=== PATIENT | male | born 1985 | race Caucasian/White ===

== ENCOUNTER 2017-01-12 20:40 | Inpatient (IN) | payer SELFPAY ==
[~2017-01-12] VITALS: Ht 182.9 cm; Wt 102.5 kg
[2017-01-12] MEDS ORDERED: QUET25TA PO (20:58)
[2017-01-12 21:09] LABS: BASOPHILS % (AUTO) 0.9 % (0.0-2.0); EOSINOPHILS % (AUTO) 0.5 % (1.0-6.0); HEMATOCRIT 42.9 % (41-53); LYMPHOCYTES % (AUTO) 32.1 % (22.0-44.0); MEAN CORPUSCULAR HEMOGLOBIN 29.4 pg (26.0-34.0); MEAN CORPUSCULAR HGB CONC 32.7 G/dL (31.0-37.0); MEAN CORPUSCULAR VOLUME 90 fL (80-100); MONOCYTES # (AUTO) 0.8 K/uL (0.1-1.0); MONOCYTES % (AUTO) 8.9 % (2.0-9.0); NEUTROPHILS # (AUTO) 5.4 K/uL (1.8-7.7); NEUTROPHILS % (AUTO) 57.6 % (40.0-70.0); RED BLOOD CELL COUNT(AUTO) 4.78 MIL/uL (4.50-5.90); RED CELL DISTRIBUTION WIDTH 12.9 % (11.5-14.5)
[2017-01-12] MEDS ORDERED: LORazepam 2 MG/ML VIAL IM ONE (21:15)
[2017-01-12] MEDS ORDERED: HALOPERIDOL LACTATE 5 MG/ML VIAL IM ONE (21:15)
[2017-01-12] MEDS ORDERED: DiphenhydrAMINE HCL 50 MG/ML VIAL IM ONE (21:15)
[2017-01-12 21:17] LABS: WHITE BLOOD COUNT (AUTO) 10.2 K/uL (4.5-11.0)
[2017-01-12 21:33] LABS: ALANINE AMINOTRANSFERASE 32 U/L (12-78); ALBUMIN 4.2 g/dL (3.4-5.0); ANION GAP 11 mmol/L (8-16); ASPARTATE AMINOTRANSFERASE 40 U/L (15-37); BILIRUBIN,TOTAL 0.8 mg/dL (0.1-1.0); CALCIUM, TOTAL 10.3 mg/dL (8.8-10.5); CARBON DIOXIDE 27 mmol/L (22-29); CHLORIDE 103 mmol/L (98-107); CREATININE 1.05 mg/dL (0.60-1.30); GLOMERULAR FILTR. RATE CALC > 60 mL/min (>60); SODIUM SERUM 141 mmol/L (136-145); TOTAL PROTEIN, SERUM 8.3 g/dL (6.4-8.2); UREA NITROGEN, BLOOD 19 mg/dL (7-18)
[2017-01-12 21:38] LABS: PLATELET COUNT (AUTO) 282 K/uL (150-450); RBC MORPHOLOGY COMMENT NORMAL RBC MORPH
[2017-01-12 21:46] LABS: POTASSIUM 4.6 mmol/L (3.5-5.1)
[2017-01-12] MEDS ORDERED: HALOPERIDOL 5 MG TABLET PO PRN (22:30)
[2017-01-12] MEDS ORDERED: ZOLPIDEM TARTRATE 10 MG TABLET PO PRN (22:30)
[2017-01-13 16:02] VITALS: BP 138/80
[2017-01-13] MEDS: LORazepam 2 MG TABLET PO PRN (20:11)
[2017-01-14 03:49] VITALS: BP 135/86
[2017-01-14 08:06] VITALS: BP 126/75
[2017-01-14] MEDS: LORazepam 2 MG TABLET PO PRN ×2 (08:38→20:08)
[2017-01-14 16:00] VITALS: BP 135/69
[2017-01-14] MEDS: QUEtiapine FUMARATE 100 MG TABLET PO SCH (20:08)
[2017-01-15 03:08] VITALS: BP 132/74
[2017-01-15 08:06] VITALS: BP 140/80
[2017-01-15] MEDS: LORazepam 2 MG TABLET PO PRN ×2 (12:48→18:13)
[2017-01-15 16:00] VITALS: BP 135/79
[2017-01-15] MEDS: QUEtiapine FUMARATE 100 MG TABLET PO SCH (20:31)
[2017-01-16 05:23] VITALS: BP 135/74
[2017-01-16 08:29] VITALS: BP 130/88
[2017-01-16] MEDS ORDERED: QUET100T PO (12:16)
== END 2017-01-16 13:30 | disposition home or self-care (01) | DRG 885 ==
LOC: EMS 20:42 → B3A 01-13 10:46
PROVIDERS: ADMIT Psychiatry & Neurology Child & Adolescent Psychiatry; ATTEND Psychiatry & Neurology Child & Adolescent Psychiatry
DX: F25.0 Schizoaffective disorder, bipolar type (principal); F17.210 Nicotine dependence, cigarettes, uncomplicated; Z91.19 Patient's noncompliance with other medical treatment and regimen; Z79.899 Other long term (current) drug therapy
CPT/HCPCS: 96372; 99285; G0480; J1200; J1630; J2060

== ENCOUNTER 2018-04-13 12:51 | Inpatient (IN) | payer MEDICAID, OTHER ==
[~2018-04-13] VITALS: Ht 182.9 cm; Wt 111.0 kg
[~2018-04-13 12:51] MED LIST: DIVA-78 PO; RISP3 PO
[2018-04-13 13:23] LABS: BASOPHILS % (AUTO) 0.7 % (0.0-2.0); EOSINOPHILS % (AUTO) 0.4 % (1.0-6.0); HEMATOCRIT 41.3 % (41-53); HEMOGLOBIN 14.5 g/dL (13.5-17.5); LYMPHOCYTES # (AUTO) 2.5 K/uL (1.0-4.8); LYMPHOCYTES % (AUTO) 26.2 % (22.0-44.0); MEAN CORPUSCULAR HEMOGLOBIN 30.6 pg (26.0-34.0); MEAN CORPUSCULAR HGB CONC 35.1 G/dL (31.0-37.0); MEAN CORPUSCULAR VOLUME 87 fL (80-100); MONOCYTES # (AUTO) 0.9 K/uL (0.1-1.0); MONOCYTES % (AUTO) 9.9 % (2.0-9.0); NEUTROPHILS % (AUTO) 62.8 % (40.0-70.0); PLATELET COUNT (AUTO) 327 K/uL (150-450); RED BLOOD CELL COUNT(AUTO) 4.73 MIL/uL (4.50-5.90); RED CELL DISTRIBUTION WIDTH 13.3 % (11.5-14.5)
[2018-04-13 13:32] LABS: ANION GAP 14 mmol/L (8-16); CALCIUM, TOTAL 9.8 mg/dL (8.8-10.5); CARBON DIOXIDE 25 mmol/L (22-29); CHLORIDE 102 mmol/L (98-107); CREATININE 1.25 mg/dL (0.60-1.30); GLOMERULAR FILTR. RATE CALC > 60 mL/min (>60); GLUCOSE,RANDOM 100 mg/dL (70-110); POTASSIUM 3.9 mmol/L (3.5-5.1); SODIUM SERUM 141 mmol/L (136-145); UREA NITROGEN, BLOOD 18 mg/dL (7-18)
[2018-04-13 13:38] LABS: ALANINE AMINOTRANSFERASE 28 U/L (12-78); ALBUMIN 4.6 g/dL (3.4-5.0); ALKALINE PHOSPHATASE 76 U/L (46-116); ASPARTATE AMINOTRANSFERASE 21 U/L (15-37); BILIRUBIN,TOTAL 1.1 mg/dL (0.1-1.0); TOTAL PROTEIN, SERUM 8.7 g/dL (6.4-8.2)
[2018-04-13] MEDS ORDERED: HALOPERIDOL LACTATE 5 MG/ML VIAL IM ONE (14:15)
[2018-04-13] MEDS ORDERED: LORazepam 2 MG/ML VIAL IM ONE (14:15)
[2018-04-13] MEDS ORDERED: DiphenhydrAMINE HCL 50 MG/ML VIAL IM ONE (14:15)
[2018-04-13] MEDS ORDERED: HALOPERIDOL 5 MG TABLET PO PRN (14:45)
[2018-04-13] MEDS ORDERED: LORazepam 2 MG TABLET PO PRN (14:45)
[2018-04-13] MEDS ORDERED: ZOLPIDEM TARTRATE 10 MG TABLET PO PRN (14:45)
[2018-04-13] MEDS ORDERED: PETROLATUM,WHITE 71 GM JELLY TP PRN ×2 (19:45→21:00)
[2018-04-13] MEDS ORDERED: MAGNESIUM HYDROXIDE SUSPENSION 30 ML UDCUP PO PRN (19:45)
[2018-04-13] MEDS ORDERED: ALBUTEROL SULFATE HFA 90 MCG/PUFF 8 GM INHALER IH PRN (19:45)
[2018-04-13] MEDS ORDERED: LOPERAMIDE HCL 2 MG CAPSULE PO PRN (19:45)
[2018-04-13] MEDS ORDERED: IBUPROFEN 400 MG TABLET PO PRN (19:45)
[2018-04-13] MEDS ORDERED: MAG HYDROX/AL HYDROX/SIMETH ES 30 ML SUSPENSION UDCUP PO PRN (19:45)
[2018-04-13] MEDS ORDERED: CloNIDine HCL 0.1 MG TABLET PO PRN (19:45)
[2018-04-13] MEDS ORDERED: ACETAMINOPHEN 325 MG TABLET PO PRN (19:45)
[2018-04-13] MEDS ORDERED: DOCUSATE SODIUM 100 MG CAPSULE PO PRN (19:45)
[2018-04-13] MEDS ORDERED: ONDANSETRON HCL 4 MG TABLET PO PRN (19:45)
[2018-04-13] MEDS: DIVALPROEX SODIUM 500 MG DR TABLET PO SCH (19:54)
[2018-04-13] MEDS ORDERED: BENZOCAINE/MENTHOL LOZENGE MM PRN (21:00)
[2018-04-13] MEDS ORDERED: BACITRACIN 28.4 GM OINTMENT TP PRN (21:00)
[2018-04-13] MEDS: RisperiDONE 2 MG TABLET PO SCH (21:11)
[2018-04-14 06:45] LABS: BASOPHILS % (AUTO) 0.8 % (0.0-2.0); EOSINOPHILS % (AUTO) 3.3 % (1.0-6.0); HEMATOCRIT 37.8 % (41-53); HEMOGLOBIN 13.2 g/dL (13.5-17.5); LYMPHOCYTES # (AUTO) 2.8 K/uL (1.0-4.8); LYMPHOCYTES % (AUTO) 47.9 % (22.0-44.0); MEAN CORPUSCULAR HEMOGLOBIN 30.8 pg (26.0-34.0); MEAN CORPUSCULAR HGB CONC 34.9 G/dL (31.0-37.0); MEAN CORPUSCULAR VOLUME 88 fL (80-100); MONOCYTES # (AUTO) 0.7 K/uL (0.1-1.0); MONOCYTES % (AUTO) 12.6 % (2.0-9.0); NEUTROPHILS # (AUTO) 2.1 K/uL (1.8-7.7); NEUTROPHILS % (AUTO) 35.4 % (40.0-70.0); PLATELET COUNT (AUTO) 259 K/uL (150-450); RED BLOOD CELL COUNT(AUTO) 4.28 MIL/uL (4.50-5.90); RED CELL DISTRIBUTION WIDTH 13.2 % (11.5-14.5)
[2018-04-14 07:09] LABS: HEMOGLOBIN A1C 5.1 % (4.5-6.2)
[2018-04-14 07:26] LABS: ALANINE AMINOTRANSFERASE 24 U/L (12-78); ALBUMIN 3.8 g/dL (3.4-5.0); ALKALINE PHOSPHATASE 66 U/L (46-116); ANION GAP 9 mmol/L (8-16); ASPARTATE AMINOTRANSFERASE 17 U/L (15-37); BILIRUBIN,TOTAL 0.8 mg/dL (0.1-1.0); CALCIUM, TOTAL 9.1 mg/dL (8.8-10.5); CARBON DIOXIDE 25 mmol/L (22-29); CHLORIDE 105 mmol/L (98-107); CHOL/HDL RATIO 3.4 (4.2-7.3); CHOLESTEROL 172 mg/dL (131-200); CREATININE 1.03 mg/dL (0.60-1.30); GLOMERULAR FILTR. RATE CALC > 60 mL/min (>60); GLUCOSE,RANDOM 115 mg/dL (70-110); HDL CHOLESTEROL 50 mg/dL (40-60); LDL CHOL (CALC.) 107 mg/dL (0-130); POTASSIUM 3.7 mmol/L (3.5-5.1); SODIUM SERUM 139 mmol/L (136-145); THYROID STIMULATING HORMONE 0.44 uIU/mL (0.36-3.74); TOTAL PROTEIN, SERUM 7.3 g/dL (6.4-8.2); TRIGLYCERIDES 75 mg/dL (15-150); UREA NITROGEN, BLOOD 14 mg/dL (7-18)
[2018-04-14 08:33] VITALS: BP 155/90
[2018-04-14] MEDS: NICOTINE 14 MG/24 HOUR PATCH TD SCH (09:00)
[2018-04-14] MEDS: DIVALPROEX SODIUM 500 MG DR TABLET PO SCH ×2 (09:35→16:39)
[2018-04-14 14:25] VITALS: BP 141/83
[2018-04-14] MEDS: QUEtiapine FUMARATE 100 MG TABLET PO SCH (16:39)
[2018-04-14 16:42] VITALS: BP 136/73
[2018-04-14] MEDS: RisperiDONE 2 MG TABLET PO SCH (20:38)
[2018-04-15 08:44] VITALS: BP 141/87
[2018-04-15] MEDS: NICOTINE 14 MG/24 HOUR PATCH TD SCH (09:00)
[2018-04-15] MEDS: DIVALPROEX SODIUM 500 MG DR TABLET PO SCH ×2 (09:52→16:33)
[2018-04-15] MEDS: QUEtiapine FUMARATE 100 MG TABLET PO SCH ×2 (09:52→16:33)
[2018-04-15 16:00] VITALS: BP 156/89
[2018-04-15] MEDS: RisperiDONE 2 MG TABLET PO SCH (20:16)
[2018-04-16 08:00] VITALS: BP 129/84
[2018-04-16] MEDS: QUEtiapine FUMARATE 100 MG TABLET PO SCH (08:17)
[2018-04-16] MEDS: DIVALPROEX SODIUM 500 MG DR TABLET PO SCH ×2 (08:17→16:35)
[2018-04-16] MEDS: NICOTINE 14 MG/24 HOUR PATCH TD SCH (09:00)
[2018-04-16] MEDS: QUEtiapine FUMARATE 200 MG TABLET PO SCH (16:35)
[2018-04-16 16:57] VITALS: BP 116/73
[2018-04-17 06:53] LABS: BASOPHILS % (AUTO) 0.6 % (0.0-2.0); EOSINOPHILS % (AUTO) 3.4 % (1.0-6.0); HEMATOCRIT 40.6 % (41-53); HEMOGLOBIN 13.9 g/dL (13.5-17.5); LYMPHOCYTES % (AUTO) 48.1 % (22.0-44.0); MEAN CORPUSCULAR HEMOGLOBIN 30.7 pg (26.0-34.0); MEAN CORPUSCULAR HGB CONC 34.4 G/dL (31.0-37.0); MEAN CORPUSCULAR VOLUME 89 fL (80-100); MONOCYTES # (AUTO) 0.6 K/uL (0.1-1.0); MONOCYTES % (AUTO) 8.9 % (2.0-9.0); NEUTROPHILS # (AUTO) 2.4 K/uL (1.8-7.7); PLATELET COUNT (AUTO) 273 K/uL (150-450); RED BLOOD CELL COUNT(AUTO) 4.55 MIL/uL (4.50-5.90); RED CELL DISTRIBUTION WIDTH 12.9 % (11.5-14.5)
[2018-04-17 07:17] LABS: ALANINE AMINOTRANSFERASE 22 U/L (12-78); ALBUMIN 3.8 g/dL (3.4-5.0); ALKALINE PHOSPHATASE 63 U/L (46-116); ANION GAP 6 mmol/L (8-16); ASPARTATE AMINOTRANSFERASE 13 U/L (15-37); BILIRUBIN,TOTAL 0.4 mg/dL (0.1-1.0); CALCIUM, TOTAL 9.1 mg/dL (8.8-10.5); CARBON DIOXIDE 30 mmol/L (22-29); CHLORIDE 100 mmol/L (98-107); CREATININE 0.82 mg/dL (0.60-1.30); GLOMERULAR FILTR. RATE CALC > 60 mL/min (>60); GLUCOSE,RANDOM 90 mg/dL (70-110); POTASSIUM 4.2 mmol/L (3.5-5.1); SODIUM SERUM 136 mmol/L (136-145); TOTAL PROTEIN, SERUM 7.3 g/dL (6.4-8.2); UREA NITROGEN, BLOOD 12 mg/dL (7-18); VALPROIC ACID 23 mcg/mL (50-100)
[2018-04-17] MEDS: QUEtiapine FUMARATE 200 MG TABLET PO SCH ×2 (08:59→16:58)
[2018-04-17] MEDS: DIVALPROEX SODIUM 500 MG DR TABLET PO SCH ×2 (08:59→16:58)
[2018-04-17 09:00] VITALS: BP 131/74
[2018-04-17] MEDS: NICOTINE 14 MG/24 HOUR PATCH TD SCH (09:00)
[2018-04-17 17:04] VITALS: BP 129/79
[2018-04-18] MEDS: NICOTINE 14 MG/24 HOUR PATCH TD SCH (08:53)
[2018-04-18] MEDS: DIVALPROEX SODIUM 500 MG DR TABLET PO SCH (08:54)
[2018-04-18] MEDS: QUEtiapine FUMARATE 200 MG TABLET PO SCH (08:54)
[2018-04-18 09:02] VITALS: BP 126/78
[2018-04-18] MEDS ORDERED: QUET200T PO (11:49)
== END 2018-04-18 14:47 | disposition home or self-care (01) | DRG 750 ==
LOC: EMS 12:52 → 3EC 18:04 → 3EI 04-16 18:00
PROVIDERS: ADMIT Psychiatry & Neurology Psychiatry; ATTEND Psychiatry & Neurology Psychiatry
DX: F25.0 Schizoaffective disorder, bipolar type (principal); Z78.1 Physical restraint status; I10 Essential (primary) hypertension; Z59.0 Homelessness; F41.9 Anxiety disorder, unspecified; G47.00 Insomnia, unspecified; Z91.19 Patient's noncompliance with other medical treatment and regimen; F17.200 Nicotine dependence, unspecified, uncomplicated; R00.0 Tachycardia, unspecified; Z63.9 Problem related to primary support group, unspecified; F19.10 Other psychoactive substance abuse, uncomplicated; Z71.6 Tobacco abuse counseling; Z71.51 Drug abuse counseling and surveillance of drug abuser
CPT/HCPCS: 82306; 83036; 84443; 96372; 99291; G0480; J1200; J1630; J2060

== ENCOUNTER 2018-11-20 14:24 | Inpatient (IN) | payer MEDICAID ==
[~2018-11-20] VITALS: Ht 182.9 cm; Wt 91.7 kg
[~2018-11-20 14:24] MED LIST changes: +QUET200T PO; -RISP3 PO
[2018-11-20] MEDS ORDERED: ZOLPIDEM TARTRATE 10 MG TABLET PO PRN (19:45)
[2018-11-20] MEDS ORDERED: HALOPERIDOL 5 MG TABLET PO PRN (19:45)
[2018-11-20] MEDS ORDERED: LORazepam 2 MG TABLET PO PRN (19:45)
[2018-11-20] MEDS ORDERED: PNEUMOCOCCAL VACCINE POLYVALENT 0.5 ML VIAL [PPSV23] IM ONE (20:00)
[2018-11-20 20:03] VITALS: BP 127/80
[2018-11-20] MEDS ORDERED: DOCUSATE SODIUM 100 MG CAPSULE PO PRN (20:30)
[2018-11-20] MEDS ORDERED: NICOTINE 14 MG/24 HOUR PATCH TD PRN (20:30)
[2018-11-20] MEDS ORDERED: ACETAMINOPHEN 325 MG TABLET PO PRN (20:30)
[2018-11-20] MEDS ORDERED: CloNIDine HCL 0.1 MG TABLET PO PRN (20:30)
[2018-11-20] MEDS ORDERED: GuaiFENesin/D-METHORPHAN [SUGAR-FREE] 200-20MG/10 ML SYRUP UDCUP PO PRN (20:30)
[2018-11-20] MEDS ORDERED: MAG HYDROX/AL HYDROX/SIMETH ES 30 ML SUSPENSION UDCUP PO PRN (20:30)
[2018-11-20] MEDS ORDERED: PETROLATUM,WHITE 71 GM JELLY TP PRN (20:30)
[2018-11-20] MEDS ORDERED: ONDANSETRON HCL 4 MG TABLET PO PRN (20:30)
[2018-11-20] MEDS ORDERED: MAGNESIUM HYDROXIDE SUSPENSION 30 ML UDCUP PO PRN (20:30)
[2018-11-20] MEDS ORDERED: IBUPROFEN 400 MG TABLET PO PRN (20:30)
[2018-11-20] MEDS ORDERED: LOPERAMIDE HCL 2 MG CAPSULE PO PRN (20:30)
[2018-11-20] MEDS ORDERED: ALBUTEROL SULFATE HFA 90 MCG/PUFF 8 GM INHALER IH PRN (20:30)
[2018-11-21 01:06] VITALS: BP 119/73
[2018-11-21 08:12] LABS: BASOPHILS % (AUTO) 0.6 % (0.0-2.0); EOSINOPHILS % (AUTO) 2.2 % (1.0-6.0); HEMOGLOBIN 14.6 g/dL (13.5-17.5); LYMPHOCYTES # (AUTO) 3.5 K/uL (1.0-4.8); LYMPHOCYTES % (AUTO) 46.1 % (22.0-44.0); MEAN CORPUSCULAR HEMOGLOBIN 29.8 pg (26.0-34.0); MEAN CORPUSCULAR HGB CONC 33.9 G/dL (31.0-37.0); MEAN CORPUSCULAR VOLUME 88 fL (80-100); MONOCYTES # (AUTO) 0.9 K/uL (0.1-1.0); NEUTROPHILS % (AUTO) 39.1 % (40.0-70.0); PLATELET COUNT (AUTO) 344 K/uL (150-450); RED CELL DISTRIBUTION WIDTH 14.1 % (11.5-14.5)
[2018-11-21 08:22] VITALS: BP 139/84
[2018-11-21 08:27] LABS: HEMOGLOBIN A1C 5.2 % (4.5-6.2)
[2018-11-21 08:31] LABS: ALANINE AMINOTRANSFERASE 29 U/L (12-78); ALBUMIN 4.5 g/dL (3.4-5.0); ALKALINE PHOSPHATASE 81 U/L (46-116); ANION GAP 12 mmol/L (8-16); ASPARTATE AMINOTRANSFERASE 38 U/L (15-37); BILIRUBIN,TOTAL 0.8 mg/dL (0.1-1.0); CALCIUM, TOTAL 10.3 mg/dL (8.8-10.5); CARBON DIOXIDE 25 mmol/L (22-29); CHLORIDE 100 mmol/L (98-107); CHOL/HDL RATIO 2.2 (4.2-7.3); CHOLESTEROL 148 mg/dL (131-200); CREATININE 1.16 mg/dL (0.60-1.30); FREE T4 (FREE THYROXINE) 1.17 ng/dL (0.76-1.46); GLOMERULAR FILTR. RATE CALC > 60 mL/min (>60); GLUCOSE,RANDOM 96 mg/dL (70-110); HDL CHOLESTEROL 66 mg/dL (40-60); LDL CHOL (CALC.) 67 mg/dL (0-130); POTASSIUM 3.9 mmol/L (3.5-5.1); SODIUM SERUM 137 mmol/L (136-145); THYROID STIMULATING HORMONE 0.26 uIU/mL (0.36-3.74); TOTAL PROTEIN, SERUM 8.6 g/dL (6.4-8.2); TRIGLYCERIDES 74 mg/dL (15-150); UREA NITROGEN, BLOOD 10 mg/dL (7-18)
[2018-11-21] MEDS ORDERED: BACITRACIN 28.4 GM OINTMENT TP PRN (10:15)
[2018-11-21] MEDS ORDERED: QUEtiapine FUMARATE 200 MG TABLET PO SCH (14:00)
[2018-11-21 16:02] VITALS: BP 117/63
[2018-11-21] MEDS: QUEtiapine FUMARATE 300 MG TABLET PO SCH (20:02)
[2018-11-22 06:23] VITALS: BP 126/84
[2018-11-22 08:32] VITALS: BP 129/80
[2018-11-22 16:00] VITALS: BP 142/87
[2018-11-22] MEDS: QUEtiapine FUMARATE 300 MG TABLET PO SCH (20:42)
[2018-11-23 08:48] VITALS: BP 138/90
[2018-11-23 16:03] VITALS: BP 145/86
[2018-11-23] MEDS: QUEtiapine FUMARATE 300 MG TABLET PO SCH (20:17)
[2018-11-24 05:50] VITALS: BP 134/74
[2018-11-24] MEDS ORDERED: QUET300T18 PO (08:45)
[2018-11-24] MEDS ORDERED: QUET300T2 PO (08:59)
== END 2018-11-24 10:25 | disposition home or self-care (01) | DRG 753 ==
LOC: B3A 19:37
DX: F31.2 Bipolar disorder, current episode manic severe with psychotic features (principal); F10.10 Alcohol abuse, uncomplicated; I10 Essential (primary) hypertension; F41.9 Anxiety disorder, unspecified; R74.0 Nonspecific elevation of levels of transaminase and lactic acid dehydrogenase [LDH]; F19.10 Other psychoactive substance abuse, uncomplicated; Z71.41 Alcohol abuse counseling and surveillance of alcoholic; Z71.51 Drug abuse counseling and surveillance of drug abuser; Z79.899 Other long term (current) drug therapy
CPT/HCPCS: 83036; 84439; 84443; 90732

== ENCOUNTER 2020-12-30 09:10 | Inpatient (IN) | payer MEDICARE, MEDICAID ==
[~2020-12-30] VITALS: Ht 182.9 cm; Wt 94.4 kg
[~2020-12-30 09:10] MED LIST changes: -DIVA-78 PO; -QUET200T PO; +QUET300T18 PO; +QUET300T2 PO
[2020-12-30 10:53] LABS: COVID AG,FIA SOURCE NASOPHARYNGEAL
[2020-12-30] MEDS ORDERED: RisperiDONE 1 MG TABLET PO ONE (12:00)
[2020-12-30] MEDS ORDERED: HALOPERIDOL 5 MG TABLET PO PRN (12:45)
[2020-12-30] MEDS ORDERED: ZOLPIDEM TARTRATE 10 MG TABLET PO PRN (12:45)
[2020-12-30 14:01] LABS: BASOPHILS % (AUTO) 0.5 % (0.0-2.0); EOSINOPHILS % (AUTO) 0.4 % (1.0-6.0); HEMATOCRIT 43.3 % (41-53); HEMOGLOBIN 14.6 g/dL (13.5-17.5); LYMPHOCYTES # (AUTO) 1.4 K/uL (1.0-4.8); LYMPHOCYTES % (AUTO) 17.6 % (22.0-44.0); MEAN CORPUSCULAR HEMOGLOBIN 30.4 pg (26.0-34.0); MEAN CORPUSCULAR HGB CONC 33.8 G/dL (31.0-37.0); MEAN CORPUSCULAR VOLUME 90 fL (80-100); MONOCYTES # (AUTO) 0.7 K/uL (0.1-1.0); MONOCYTES % (AUTO) 8.5 % (2.0-9.0); NEUTROPHILS # (AUTO) 5.6 K/uL (1.8-7.7); PLATELET COUNT (AUTO) 335 K/uL (150-450); RED BLOOD CELL COUNT(AUTO) 4.81 MIL/uL (4.50-5.90); RED CELL DISTRIBUTION WIDTH 12.8 % (11.5-14.5)
[2020-12-30 14:14] LABS: ANION GAP 9 mmol/L (8-16); CALCIUM, TOTAL 9.7 mg/dL (8.8-10.5); CARBON DIOXIDE 30 mmol/L (22-29); CHLORIDE 103 mmol/L (98-107); CREATININE 0.82 mg/dL (0.60-1.30); GLOMERULAR FILTR. RATE CALC > 60 mL/min (>60); GLUCOSE,RANDOM 102 mg/dL (70-110); POTASSIUM 3.6 mmol/L (3.5-5.1); SODIUM SERUM 142 mmol/L (136-145); UREA NITROGEN, BLOOD 4 mg/dL (7-18)
[2020-12-30 14:21] LABS: ALANINE AMINOTRANSFERASE 39 U/L (12-78); ALBUMIN 4.6 g/dL (3.4-5.0); ALKALINE PHOSPHATASE 80 U/L (46-116); ASPARTATE AMINOTRANSFERASE 36 U/L (15-37); BILIRUBIN,TOTAL 0.6 mg/dL (0.1-1.0); TOTAL PROTEIN, SERUM 8.4 g/dL (6.4-8.2)
[2020-12-30 15:43] VITALS: BP 140/84
[2020-12-30 16:16] VITALS: BP 140/84
[2020-12-30] MEDS: QUEtiapine FUMARATE 300 MG TABLET PO SCH (22:03)
[2020-12-31 04:35] VITALS: BP 143/90
[2020-12-31] MEDS: LORazepam 2 MG TABLET PO PRN ×2 (04:45→13:35)
[2020-12-31 07:54] LABS: CHOL/HDL RATIO 2.2 (4.2-7.3)
[2020-12-31 08:00] VITALS: BP 129/86
[2020-12-31] MEDS ORDERED: DOCUSATE SODIUM 100 MG CAPSULE PO PRN (09:30)
[2020-12-31] MEDS ORDERED: MAG HYDROX/AL HYDROX/SIMETH ES 30 ML SUSPENSION UDCUP PO PRN (09:30)
[2020-12-31] MEDS ORDERED: ONDANSETRON HCL 4 MG TABLET PO PRN (09:30)
[2020-12-31] MEDS ORDERED: CloNIDine HCL 0.1 MG TABLET PO PRN (09:30)
[2020-12-31] MEDS ORDERED: LOPERAMIDE HCL 2 MG CAPSULE PO PRN (09:30)
[2020-12-31] MEDS ORDERED: ALBUTEROL SULFATE HFA 90 MCG/PUFF 8 GM INHALER IH PRN (09:30)
[2020-12-31] MEDS ORDERED: BACITRACIN 28 GM OINTMENT TP PRN (09:30)
[2020-12-31] MEDS ORDERED: ACETAMINOPHEN 325 MG TABLET PO PRN (09:30)
[2020-12-31] MEDS ORDERED: BENZOCAINE/MENTHOL LOZENGE PO PRN (09:30)
[2020-12-31] MEDS ORDERED: IBUPROFEN 600 MG TABLET PO PRN (09:30)
[2020-12-31] MEDS ORDERED: MAGNESIUM HYDROXIDE SUSPENSION 30 ML UDCUP PO PRN (09:30)
[2020-12-31] MEDS ORDERED: OMEPRAZOLE 20 MG CAPSULE PO PRN (09:30)
[2020-12-31] MEDS ORDERED: PETROLATUM,WHITE 28 GM JELLY TP PRN (09:30)
[2020-12-31 16:48] VITALS: BP 141/90
[2020-12-31] MEDS: QUEtiapine FUMARATE 300 MG TABLET PO SCH (20:00)
[2021-01-01] MEDS: LORazepam 2 MG TABLET PO PRN (00:37)
[2021-01-01 08:00] VITALS: BP 119/76
[2021-01-01 16:03] VITALS: BP 128/70
[2021-01-01] MEDS: QUEtiapine FUMARATE 300 MG TABLET PO SCH (20:12)
[2021-01-02 08:00] VITALS: BP 142/86
[2021-01-02 16:00] VITALS: BP 111/70
[2021-01-02] MEDS: QUEtiapine FUMARATE 300 MG TABLET PO SCH (20:10)
[2021-01-03 08:27] VITALS: BP 117/70
[2021-01-03 16:00] VITALS: BP 134/81
[2021-01-03] MEDS: QUEtiapine FUMARATE 300 MG TABLET PO SCH (20:27)
[2021-01-04 08:57] VITALS: BP 119/82
== END 2021-01-04 14:20 | disposition home or self-care (01) | DRG 885 ==
LOC: EMS 09:34 → 3EC 12:36
PROVIDERS: ADMIT Psychiatry & Neurology Psychiatry; ATTEND Psychiatry & Neurology Psychiatry
DX: F25.9 Schizoaffective disorder, unspecified (principal); F41.9 Anxiety disorder, unspecified; G47.00 Insomnia, unspecified; Z20.822 Contact with and (suspected) exposure to COVID-19; I10 Essential (primary) hypertension; K59.00 Constipation, unspecified; F17.210 Nicotine dependence, cigarettes, uncomplicated
CPT/HCPCS: 80053; 85025; 87426; 99285; G0480

== ENCOUNTER 2023-01-28 15:31 | Inpatient (IN) | payer MEDICARE, MEDICAID ==
[~2023-01-28] VITALS: Ht 177.8 cm; Wt 74.8 kg
[~2023-01-28 15:31] MED LIST changes: +MELA5TAB40 PO; +NALT50TA PO; +OMEG-135 PO; -QUET300T18 PO; +QUET300T19 PO; -QUET300T2 PO
[2023-01-28] MEDS ORDERED: LORazepam 2 MG/ML VIAL IM ONE (16:30)
[2023-01-28] MEDS ORDERED: HALOPERIDOL LACTATE 5 MG/ML VIAL IM ONE (16:30)
[2023-01-28] MEDS ORDERED: DiphenhydrAMINE HCL 50 MG/ML VIAL IM ONE (16:30)
[2023-01-28 16:41] LABS: BASOPHILS % (AUTO) 0.5 % (0.0-2.0); EOSINOPHILS % (AUTO) 1.1 % (1.0-6.0); HEMATOCRIT 38.7 % (41-53); HEMOGLOBIN 12.6 g/dL (13.5-17.5); LYMPHOCYTES # (AUTO) 1.3 K/uL (1.0-4.8); LYMPHOCYTES % (AUTO) 19.2 % (22.0-44.0); MEAN CORPUSCULAR HGB CONC 32.6 G/dL (31.0-37.0); MEAN CORPUSCULAR VOLUME 92 fL (80-100); MONOCYTES # (AUTO) 0.7 K/uL (0.1-1.0); MONOCYTES % (AUTO) 9.8 % (2.0-9.0); NEUTROPHILS # (AUTO) 4.8 K/uL (1.8-7.7); NEUTROPHILS % (AUTO) 69.4 % (40.0-70.0); PLATELET COUNT (AUTO) 309 K/uL (150-450); RED CELL DISTRIBUTION WIDTH 13.5 % (11.5-14.5)
[2023-01-28 16:51] LABS: ANION GAP 10 mmol/L (8-16); CALCIUM, TOTAL 9.5 mg/dL (8.8-10.5); CARBON DIOXIDE 29 mmol/L (22-29); CHLORIDE 99 mmol/L (98-107); CREATININE 0.88 mg/dL (0.60-1.30); GLOMERULAR FILTR. RATE CALC > 60 mL/min (>60); GLUCOSE,RANDOM 93 mg/dL (70-110); POTASSIUM 3.2 mmol/L (3.5-5.1); SODIUM SERUM 138 mmol/L (136-145); UREA NITROGEN, BLOOD 10 mg/dL (7-18)
[2023-01-28 16:55] LABS: ALANINE AMINOTRANSFERASE 21 U/L (12-78); ALBUMIN 4.5 g/dL (3.4-5.0); ALKALINE PHOSPHATASE 76 U/L (46-116); ASPARTATE AMINOTRANSFERASE 23 U/L (15-37); BILIRUBIN,TOTAL 0.6 mg/dL (0.1-1.0); TOTAL PROTEIN, SERUM 7.7 g/dL (6.4-8.2)
[2023-01-28] MEDS ORDERED: HALOPERIDOL 5 MG TABLET PO PRN (17:00)
[2023-01-28] MEDS ORDERED: POTASSIUM CHLORIDE 10% 40 MEQ/30 ML LIQUID UDCUP PO ONE (17:00)
[2023-01-28] MEDS ORDERED: LORazepam 2 MG TABLET PO PRN (17:00)
[2023-01-28] MEDS ORDERED: ZOLPIDEM TARTRATE 10 MG TABLET PO PRN (17:00)
[2023-01-28 17:38] LABS: COVID AG,FIA SOURCE NASOPHARYNGEAL
[2023-01-28 22:49] VITALS: BP 100/63
[2023-01-28] MEDS ORDERED: PNEUMOCOCCAL VACCINE POLYVALENT 0.5 ML VIAL [PPSV23] IM. ONE (23:15)
[2023-01-29] MEDS: OMEGA-3/DHA/EPA/FISH OIL 1,000 MG CAPSULE PO SCH (08:41)
[2023-01-29] MEDS: NALTREXONE HCL 50 MG TABLET PO SCH (11:06)
[2023-01-29] MEDS ORDERED: MAG HYDROX/AL HYDROX/SIMETH ES 30 ML SUSPENSION UDCUP PO PRN (19:45)
[2023-01-29] MEDS ORDERED: DOCUSATE SODIUM 100 MG CAPSULE PO PRN (19:45)
[2023-01-29] MEDS ORDERED: IBUPROFEN 400 MG TABLET PO PRN (19:45)
[2023-01-29] MEDS ORDERED: PETROLATUM,WHITE 28 GM JELLY TP PRN (19:45)
[2023-01-29] MEDS ORDERED: MAGNESIUM HYDROXIDE SUSPENSION 30 ML UDCUP PO PRN (19:45)
[2023-01-29] MEDS ORDERED: NICOTINE 14 MG/24 HOUR PATCH TD PRN (19:45)
[2023-01-29] MEDS ORDERED: CloNIDine HCL 0.1 MG TABLET PO PRN (19:45)
[2023-01-29] MEDS ORDERED: ONDANSETRON HCL 4 MG TABLET PO PRN (19:45)
[2023-01-29] MEDS ORDERED: GuaiFENesin/D-METHORPHAN [SUGAR-FREE] 200-20MG/10 ML SYRUP UDCUP PO PRN (19:45)
[2023-01-29] MEDS ORDERED: LOPERAMIDE HCL 2 MG CAPSULE PO PRN (19:45)
[2023-01-29] MEDS ORDERED: ACETAMINOPHEN 325 MG TABLET PO PRN (19:45)
[2023-01-29] MEDS ORDERED: ALBUTEROL SULFATE HFA 90 MCG/PUFF 8 GM INHALER IH PRN (19:45)
[2023-01-29 20:04] VITALS: BP 110/64
[2023-01-29] MEDS: QUEtiapine FUMARATE 300 MG TABLET PO SCH (20:17)
[2023-01-29] MEDS: MELATONIN 5 MG TABLET PO SCH (20:35)
[2023-01-30 08:01] VITALS: BP 132/84
[2023-01-30] MEDS: NALTREXONE HCL 50 MG TABLET PO SCH (08:36)
[2023-01-30] MEDS: QUEtiapine FUMARATE 100 MG TABLET PO SCH (08:37)
[2023-01-30] MEDS: OMEGA-3/DHA/EPA/FISH OIL 1,000 MG CAPSULE PO SCH (08:37)
[2023-01-30] MEDS ORDERED: OMEGA-3/DHA/EPA/FISH OIL 1,000 MG CAPSULE PO SCH (09:00)
[2023-01-30 20:10] VITALS: BP 111/71
[2023-01-30] MEDS: QUEtiapine FUMARATE 300 MG TABLET PO SCH (21:30)
[2023-01-30] MEDS: MELATONIN 5 MG TABLET PO SCH (21:31)
[2023-01-31 07:49] VITALS: BP 121/77
[2023-01-31] MEDS: NALTREXONE HCL 50 MG TABLET PO SCH (08:09)
[2023-01-31] MEDS: QUEtiapine FUMARATE 100 MG TABLET PO SCH (08:09)
[2023-01-31] MEDS: OMEGA-3/DHA/EPA/FISH OIL 1,000 MG CAPSULE PO SCH (08:09)
[2023-01-31 10:03] VITALS: BP 121/77
[2023-01-31] MEDS ORDERED: NALT50TA PO (13:15)
[2023-01-31] MEDS ORDERED: MELA5TAB40 PO (13:15)
[2023-01-31] MEDS ORDERED: QUET300T19 PO (13:15)
[2023-01-31] MEDS ORDERED: QUET100T34 PO (13:15)
== END 2023-01-31 17:06 | disposition home or self-care (01) | DRG 885 ==
LOC: EMS 15:31 → B3A 20:24
PROVIDERS: ADMIT Psychiatry & Neurology Child & Adolescent Psychiatry; ATTEND Psychiatry & Neurology Child & Adolescent Psychiatry
PROC: 3E0234Z Introduction of Serum, Toxoid and Vaccine into Muscle, Percutaneous Approach (ICD-10-PCS; principal; 2023-01-28)
DX: F25.0 Schizoaffective disorder, bipolar type (principal); E87.6 Hypokalemia; D64.9 Anemia, unspecified; F31.9 Bipolar disorder, unspecified; R03.0 Elevated blood-pressure reading, without diagnosis of hypertension; Z20.822 Contact with and (suspected) exposure to COVID-19; Z79.899 Other long term (current) drug therapy; Z23 Encounter for immunization; Z87.891 Personal history of nicotine dependence
CPT/HCPCS: 80053; 85025; 96372; 99291; G0480; J1200; J1630; J2060; Q9967